=== PATIENT | male | born 1945 | race Caucasian/White ===

== ENCOUNTER 2018-11-15 19:54 | Observation (INO) | payer OTHER, BC, MEDICAID ==
[2018-11-15] MEDS ORDERED: NS 500 ML IV ONE (20:04)
[2018-11-15 20:26] LABS: PLATELET COUNT 256 10^3/uL (150-400)
[2018-11-15 20:46] LABS: INR 1.24 (0.83-1.16); PROTIME(PATIENT) 15.1 SEC (12.0-15.0)
[2018-11-15] MEDS ORDERED: NS 1,000 ML IV ONE (21:01)
--- NOTE | 2018-11-15 21:26 | EDPHY ---
H & P Time Seen by Provider: 11/15/18 20:04 HPI/ROS: HPI Lightheaded. Almost passed out. 73-year-old male, history of atrial fibrillation, presents to the emergency department with his . The patient reports that he was [place] the [employer] [place] all day today. He reports that several times during his adding he experienced episodes of lightheadedness and almost fainted. He states that he felt his heart beating rapidly as well. He denies any chest pain. No shortness of breath. He has a history of atrial fibrillation with an ablation performed in July. He reports he has been in sinus rhythm since that time. He is currently on Xarelto. He also has a history of a pacemaker which was placed secondary to bradycardia associated with his atrial fibrillation. ROS: Constitutional: No fever, no chills. As above. Eyes: No discharge. No changes in vision. ENT: No sore throat. No nasal congestion or rhinorrhea. Respiratory: No cough. No shortness of breath. Cardiac: No chest pain, as above. Gastrointestinal: No abdominal pain, no vomiting, no diarrhea. Genitourinary: No hematuria. No dysuria or increased frequency with urination. Musculoskeletal: No back pain. No neck pain. No myalgias or arthralgias. Skin: No rashes. Neurological: No headache. No focal weakness or altered sensation. Past medical history: Atrial fibrillation, type 2 diabetes, hypertension. He is currently on enalapril. Social history: Nonsmoker. He is here with his . Denies alcohol. Physical Exam: General Appearance: Alert, no distress. This patient is responding to questions appropriately and in full sentences. This patient appears well- hydrated and well-nourished. Eyes: Pupils equal and round no pallor or injection. No lid edema, erythema or injection. Respiratory: There are no retractions, lungs are clear to auscultation with good air movement bilaterally. Cardiovascular: Regular rate and rhythm. No murmur. Gastrointestinal: Abdomen is soft and nontender, no masses, bowel sounds normal. No focal tenderness at McBurney's point. No Navarro sign. Neurological: Motor sensory function is grossly intact. Cranial nerves are normal. Gait is normal. Skin: Warm and dry, no rashes. Musculoskeletal: Neck is supple and nontender. Extremities are symmetrical. All joints range without pain or impingement. Psychiatric: No agitation. No depression. Database: EKG: EKG time is 8:09 p.m.; EKG shows a narrow complex atrial flutter with a 4-1 av block and a ventricular rate of 64. The IL, QRS, QT intervals are within normal limits. There are no ST-T wave changes indicative of ischemic or injury pattern. No evidence of right heart strain. Interpreted by me. Imaging: Chest x-ray AP portable: Cardiac mediastinal silhouette is unremarkable. No evidence of pneumothorax or infiltrate. Pacemaker left upper chest wall. Leads appear to be intact. No acute cardiopulmonary disease process noted. Interpreted by me. Procedures: Emergency department course: Triage vital signs reviewed. The patient is hypotensive with a blood pressure of 88/57. Otherwise vital signs are normal. Patient is afebrile. IV was placed. He was started on IV normal saline with 500 cc to be given initially as a bolus. EKG obtained and reviewed by myself. He states that he is feeling better now. 9:00 p.m., patient re-evaluated, resting comfortably at this time. Results of some diagnostic studies discussed with him. Blood pressure currently 96/62. The patient's blood work indicates renal insufficiency likely secondary to dehydration. He will be given an additional L of IV normal saline. 9:30 p.m., patient's blood pressure is now 113/65. vehicle monitor technician shows what appears to be a flutter with 4-1 block ventricular rate of 60. Pulse oximetry on room air 97%. Spoke with the on-call hospitalist. Case discussed in detail with him. Patient accepted for admission to the hospitalist service PCU observation. Patient's remaining emergency department course under my care has been uneventful. He was admitted in stable condition. Differential Diagnosis: The differential diagnosis on this patient includes but is not limited to atrial flutter. This represents a partial list of diagnoses considered. These considerations are based on history, physical exam, past history, reassessment and diagnostic testing. Smoking Status: Unknown if ever smoked Constitutional: Initial Vital Signs Temperature (C) 36.7 C 11/15/18 19:56 Heart Rate 80 11/15/18 19:56 Respiratory Rate 16 11/15/18 19:56 Blood Pressure 88/57 L 11/15/18 19:56 O2 Sat (%) 95 11/15/18 19:56 O2 Delivery Mode Room Air Allergies/Adverse Reactions: NSAIDS (Non-Steroidal Anti-Inflamma Allergy (Verified 11/15/18 20:00) Oaedbkr-Ibv-Vdo Reductase Inhibitor Allergy (Verified 11/15/18 20:00) Home Medications: Medication Instructions Recorded Lisinopril 11/15/18 Metformin HCl 11/15/18 Xarelto 11/15/18 Medical Decision Making - Data Points Laboratory Results: Laboratory Results 11/15/18 20:12 11/15/18 20:12 11/15/18 11/15/18 11/15/18 20:15 20:12 20:12 WBC RBC Hgb Hct MCV MCH MCHC RDW Plt Count MPV Neut % (Auto) Lymph % (Auto) Hall % (Auto) Eos % (Auto) Baso % (Auto) Nucleat RBC Rel Count Absolute Neuts (auto) Absolute Lymphs (auto) Absolute Monos (auto) Absolute Eos (auto) Absolute Basos (auto) Absolute Nucleated RBC Immature Gran % Immature Gran # PT 15.1 SEC H SEC (12.0-15.0) INR 1.24 H (0.83-1.16) APTT 31.4 SEC SEC (23.0-38.0) Sodium 138 mEq/L mEq/L (135-145) Potassium 4.5 mEq/L mEq/L (3.5-5.2) Chloride 105 mEq/L mEq/L (97-110) Carbon Dioxide 21 mEq/l L mEq/l (22-31) Anion Gap 12 mEq/L mEq/L (6-14) BUN 31 mg/dL H mg/dL (7-23) Creatinine 2.4 mg/dL H mg/dL (0.7-1.3) Estimated GFR 27 Glucose 123 mg/dL H mg/dL (70-100) Calcium 9.2 mg/dL mg/dL (8.5-10.4) POC Troponin I 0.01 ng/mL ng/mL (0.00-0.08) 11/15/18 20:12 WBC 6.29 10^3/uL 10^3/uL (3.80-9.50) RBC 4.30 10^6/uL L 10^6/uL (4.40-6.38) Hgb 13.4 g/dL L g/dL (13.7-17.5) Hct 39.8 % L % (40.0-51.0) MCV 92.6 fL fL (81.5-99.8) MCH 31.2 pg pg (27.9-34.1) MCHC 33.7 g/dL g/dL (32.4-36.7) RDW 13.9 % % (11.5-15.2) Plt Count 256 10^3/uL 10^3/uL (150-400) MPV 10.0 fL fL (8.7-11.7) Neut % (Auto) 60.7 % % (39.3-74.2) Lymph % (Auto) 28.0 % % (15.0-45.0) Hall % (Auto) 9.5 % % (4.5-13.0) Eos % (Auto) 1.0 % % (0.6-7.6) Baso % (Auto) 0.5 % % (0.3-1.7) Nucleat RBC Rel Count 0.0 % % (0.0-0.2) Absolute Neuts (auto) 3.82 10^3/uL 10^3/uL (1.70-6.50) Absolute Lymphs (auto) 1.76 10^3/uL 10^3/uL (1.00-3.00) Absolute Monos (auto) 0.60 10^3/uL 10^3/uL (0.30-0.80) Absolute Eos (auto) 0.06 10^3/uL 10^3/uL (0.03-0.40) Absolute Basos (auto) 0.03 10^3/uL 10^3/uL (0.02-0.10) Absolute Nucleated RBC 0.00 10^3/uL 10^3/uL (0-0.01) Immature Gran % 0.3 % % (0.0-1.1) Immature Gran # 0.02 10^3/uL 10^3/uL (0.00-0.10) PT INR APTT Sodium Potassium Chloride Carbon Dioxide Anion Gap BUN Creatinine Estimated GFR Glucose Calcium POC Troponin I Medications Given: Discontinued Medications Sodium Chloride (Ns) 500 mls @ 1,000 mls/hr IV EDNOW ONE PRN Reason: Protocol Stop: 11/15/18 20:33 Last Admin: 11/15/18 20:38 Dose: 500 mls Sodium Chloride (Ns) 1,000 mls @ 0 mls/hr IV EDNOW ONE; Wide Open PRN Reason: Protocol Stop: 11/15/18 21:02 Last Admin: 11/15/18 21:06 Dose: 1,000 mls Point of Care Test Results: Chemistry 11/15/18 20:15 POC Troponin I 0.01 ng/mL ng/mL (0.00-0.08) Departure - Departure Disposition: [facility] Inpatient Acute Clinical Impression: Atrial flutter, Near syncope, Dehydration, Kidney injury Referrals: PAMELA OROZCO [Primary Care Provider] - As per Instructions
[2018-11-15] MEDS ORDERED: ONDANSETRON 4 MG/2 ML VIAL IVP PRN (22:33)
[2018-11-15] MEDS ORDERED: ONDANSETRON DISINTEGRATING 4 MG TAB PO PRN (22:33)
[2018-11-15] MEDS ORDERED: ACETAMINOPHEN 325 MG TAB PO PRN (22:33)
[2018-11-15] MEDS ORDERED: NS 1,000 ML IV SCH (22:45)
--- NOTE | 2018-11-15 23:41 | CPEKG ---
Test Reason : OPEN Blood Pressure : / mmHG Vent. Rate : 064 BPM Atrial Rate : 254 BPM P-R Int : 124 ms QRS Dur : 085 ms QT Int : 397 ms P-R-T Axes : -85 -33 004 degrees QTc Int : 410 ms Atrial flutter with predominant 4:1 AV block Left axis deviation Confirmed by Mike Stevenson ([id number]) on 11/15/2018 11:41:06 PM Referred By: Mike Stevenson Confirmed By:Mike Stevenson
--- NOTE | 2018-11-16 02:58 | PDGENHP ---
History and Physical - Chief Complaint lightheadedness, palpitations - History of Present Illness Source - Patient provides history and appears reliable. at bedside and supplements details. EMR reviewed and case discussed with accepting hospitalist HPI - This is a pleasant 73M with pmhx significant for HTN, DMII chronic atrial fib s/p ablation and pacer who presents to the ED with c/o several episodes of lightheadedness/near syncope and palpitations. Patient reports he was feeling well until this afternoon. He and his were attending the [employer] festival. Patient denies any chest pain, SOB, fevers/chills. He notes he is currently taking lisinopril and HCTZ for BP control. he was recently taken off amlodipine for low BPs. He notes increased activity over the weekend without significant increase in oral hydration and continued intake of antihypertensives. He had normal urine color/output in the AM but nothing since that time. he denies any flank pain or dysuria. He does not progressive decrease in emptying his bladder and decreased stream 2/2 BPH. Patient seen in the ED after 10pm and still had not voided. In the ED, patient was noted to be hypotensive without tachycardia. BPs and symptoms improved following IVF bolus. Patient was noted to have acute renal insufficiency. Patient report he had labs drawn 5 days ago within the [facility] system but unsure if result WNL. History Information - Allergies/Home Medication List Allergies/Adverse Reactions: naproxen [From Aleve] Allergy (Severe, Verified 11/15/18 22:16) Anaphylaxis Lqgcyxe-Ois-Gyd Reductase Inhibitor Allergy (Mild, Verified 11/15/18 22:16) Other-Enter Comments Home Medications: Armodafinil 150 mg PO MOTUWETHFR 11/15/18 [Last Taken 11/12/18] Escitalopram Oxalate [Lexapro] 10 mg PO HS 11/15/18 [Last Taken 11/15/18] Herbals/Supplements -Info Only 1 ea PO DAILY 11/15/18 [Last Taken 11/15/18] Hydrochlorothiazide [HCTZ (*)] 12.5 mg PO DAILY 11/15/18 [Last Taken 11/15/18] Metoprolol Tartrate [Lopressor 25 mg (*)] 25 mg PO BID 11/15/18 [Last Taken ] Pantoprazole Sodium [Protonix 40mg (*)] 40 mg PO DAILY 11/15/18 [Last Taken ] Rivaroxaban [Xarelto] 20 mg PO DAILY 11/15/18 [Last Taken 11/15/18] metFORMIN HCL [Metformin HCl] 500 mg PO BID 11/15/18 [Last Taken 11/15/18] I have personally reviewed and updated: family history, medical history, social history, surgical history - Past Medical History atrial fibrillation (hx of ablation 07/2018, pacer), diabetes type 2, hypertension - Surgical History Additional surgical history: cataract extraction with lens placement. PPM for bradycardia/afib. umbilical hernia repair. - Family History Additional family history: father - CVA, HTN - Social History Smoking Status: Unknown if ever smoked Alcohol Use: Occasionally (1 glass wine monthly) Drug Use: None Additional social history: . COR - FULL. Review of Systems Review of Systems: ROS: 10pt was reviewed & negative except for what was stated in HPI & below Cardiac: Reports: edema (improved with HCTZ), lightheadedness, palpitations, syncope (near syncope). Denies: chest pain Respiratory: Reports: no symptoms Gastrointestinal: Reports: no symptoms Genitourinary: Reports: no symptoms Muscolosketal: Reports: no symptoms Skin: Reports: no symptoms Neurological: Reports: no symptoms Physical Exam Physical Exam: Selected Entries 11/15/18 19:56 Blood Pressure Automatic Method Heart Rate 80 Respiratory 16 Rate O2 Sat (%) 95 Temperature (C) 36.7 C Blood Pressure 88/57 L Mean Arterial 67 Pressure (MAP) O2 Delivery Room Air Mode Temperature Oral Source Temp Pulse Resp BP Pulse Ox 36.6 C 60 16 110/66 97 11/16/18 00:15 11/16/18 00:57 11/16/18 00:15 11/16/18 00:57 11/16/18 00:15 Constitutional: no apparent distress, appears nourished, obese, other (NAD. pleasant adult male lays quietly on gurney. at bedside. ) Eyes: PERRL (lens reflex appreciated bilaterally. ), anicteric sclera, EOMI, No scleral injection Ears, Nose, Mouth, Throat: dry mucous membranes, No poor dentition (dental hardware/partial) Cardiovascular: regular rate and rhythym, no murmur, rub, or gallop, pulses symmetric bilaterally, edema (2+ nonpitting bilateral LE.), other (slightly distant heart sounds. ) Peripheral Pulses: 1+: dorsalis-pedis (R), dorsalis-pedis (L) Respiratory: no respiratory distress, no rales or rhonchi, clear to auscultation , No inspiratory crackles Gastrointestinal: normoactive bowel sounds, soft, non-tender abdomen, no palpable masses, other (obese abdomen) Genitourinary: no bladder tenderness, other (no CVA tenderness), No dennis in urethra Skin: warm, normal color, no rashes or abrasions Musculoskeletal: full muscle strength, other (patient able to sit up independently with side rail. moves all extremities. ) Neurologic: AAOx3, sensation intact bilaterally, other (grossly nonfocal. ), No facial droop Lab Data & Imaging Review 11/15/18 20:12 11/15/18 20:12 WBC 6.29 10^3/uL (3.80-9.50) 11/15/18 20:12 RBC 4.30 10^6/uL (4.40-6.38) L 11/15/18 20:12 Hgb 13.4 g/dL (13.7-17.5) L 11/15/18 20:12 Hct 39.8 % (40.0-51.0) L 11/15/18 20:12 MCV 92.6 fL (81.5-99.8) 11/15/18 20:12 MCH 31.2 pg (27.9-34.1) 11/15/18 20:12 MCHC 33.7 g/dL (32.4-36.7) 11/15/18 20:12 RDW 13.9 % (11.5-15.2) 11/15/18 20:12 Plt Count 256 10^3/uL (150-400) 11/15/18 20:12 MPV 10.0 fL (8.7-11.7) 11/15/18 20:12 Neut % (Auto) 60.7 % (39.3-74.2) 11/15/18 20:12 Lymph % (Auto) 28.0 % (15.0-45.0) 11/15/18 20:12 [place] % (Auto) 9.5 % (4.5-13.0) 11/15/18 20:12 Eos % (Auto) 1.0 % (0.6-7.6) 11/15/18 20:12 Baso % (Auto) 0.5 % (0.3-1.7) 11/15/18 20:12 Nucleat RBC Rel Count 0.0 % (0.0-0.2) 11/15/18 20:12 Absolute Neuts (auto) 3.82 10^3/uL (1.70-6.50) 11/15/18 20:12 Absolute Lymphs (auto) 1.76 10^3/uL (1.00-3.00) 11/15/18 20:12 Absolute Monos (auto) 0.60 10^3/uL (0.30-0.80) 11/15/18 20:12 Absolute Eos (auto) 0.06 10^3/uL (0.03-0.40) 11/15/18 20:12 Absolute Basos (auto) 0.03 10^3/uL (0.02-0.10) 11/15/18 20:12 Absolute Nucleated RBC 0.00 10^3/uL (0-0.01) 11/15/18 20:12 Immature Gran % 0.3 % (0.0-1.1) 11/15/18 20:12 Immature Gran # 0.02 10^3/uL (0.00-0.10) 11/15/18 20:12 PT 15.1 SEC (12.0-15.0) H 11/15/18 20:12 INR 1.24 (0.83-1.16) H 11/15/18 20:12 APTT 31.4 SEC (23.0-38.0) 11/15/18 20:12 Sodium 138 mEq/L (135-145) 11/15/18 20:12 Potassium 4.5 mEq/L (3.5-5.2) 11/15/18 20:12 Chloride 105 mEq/L (97-110) 11/15/18 20:12 Carbon Dioxide 21 mEq/l (22-31) L 11/15/18 20:12 Anion Gap 12 mEq/L (6-14) 11/15/18 20:12 BUN 31 mg/dL (7-23) H 11/15/18 20:12 Creatinine 2.4 mg/dL (0.7-1.3) H 11/15/18 20:12 Estimated GFR 27 11/15/18 20:12 Glucose 123 mg/dL (70-100) H 11/15/18 20:12 Calcium 9.2 mg/dL (8.5-10.4) 11/15/18 20:12 POC Troponin I 0.01 ng/mL (0.00-0.08) 11/15/18 20:15 Imaging Review: AP upright portable chest x-ray 2040 hours History: Chest Pain Findings: Comparison to 09/10/2007. Pacemaker unit and leads are now noted. Heart size is upper limits of normal. Pulmonary vasculature is not engorged. There is no consolidation, effusion, or pneumothorax. Osseous structures are unchanged. Impression: 1. No active cardiopulmonary disease seen. 2. Pacemaker unit and leads in good position. Dictated By: Jessee Guan MD Visualized and Interpreted Chest x-ray results: Yes EKG additional interpertation: aflutter with 4:1 AV block. LAD. QTc 410. no acute ST changes. Assessment & Plan Assessment: This is a pleasant 73M with pmhx significant for HTN, DMII chronic atrial fib s/ p ablation and pacer who presents to the ED with c/o several episodes of lightheadedness/near syncope and palpitations. #Atrial flutter (Acute) - currently rate controlled. monitor on tele overnight. suspect presyncope related to dehydration/orthostasis but consider interrogating pacer in AM. continue xarelto #Dehydration (Acute) - patient still appears dehydrated. BPs improved following bolus. orthostatic bps. suspect dehydration in setting of decreased po hydration and continued use of HCTZ. #ARF - creatinine 2.4. no recent renal panel avail for review at this time. will try to obtain tomorrow. pt reports recent o/p lab draws in AM. suspect pre- renal in setting of hypotension/dehydration. possible component of ATN. IVF hydration overnight. also will check post-void residual as patient noting increased BPH sx. #Near syncope (Acute) - 2/2 hypotension. patient currently asymptomatic. chronic medical issues #benign essential HTN - holding HCTZ/lisinopril at this time with hypotension and ARF. consider prn hydralazine if needed. pt s/p pacer for bradycardia. metoprolol. #DM II - hold metformin in setting of ARF. monitor BS. low dose ISS if needed. #GERD - continue PPI. FEN - IVF overnight. encourage PO hydration as well. electrolyte monitoring and replacement prn. ADA diet. PPX - SCDs. continue xarelto when med rec avail. COR - FULL. Dispo - Patient admitted to observation status pending re-evaluation of renal function and overnight tele in AM.
[2018-11-16 04:37] LABS: PLATELET COUNT 201 10^3/uL (150-400)
[2018-11-16 07:26] VITALS: BP 113/76
--- NOTE | 2018-11-16 09:01 | ASMTCMCOM ---
CM Note CM Note Notes: Chart reviewed for discharge planning purposes. Patient is a 73 year old male who normally resides independent with his in [place]. They were at the [employer] festival yesterday where he became lightheaded and dizzy and came to the ER. Medical history significant for DM, Afib s/p ablation, PPM and HTN. Cardiology consulted. No anticipated needs. CM to follow. Plan: Likely home with family support when medically cleared for follow up. Date Signed: 11/16/2018 09:00 AM Electronically Signed By:Idalia Castro RN
--- NOTE | 2018-11-16 11:14 | ASMTLACE ---
LACE Length of stay for Answers: Less than 1 day current admission Acuity / Level of Answers: No Care: Did the patient have an inpatient admission? Comorbidities - select Answers: Diabetes (uncontrolled or all that apply controlled) Mild liver or renal disease Other Notes: Aflutter # of Emergency department Answers: 1-2 visits in the last 6 months Score: 5 Date Signed: 11/16/2018 11:13 AM Electronically Signed By:Idalia Castro RN
--- NOTE | 2018-11-16 11:18 | ASMTDCNOTE ---
Case Management Discharge Discharge Order Complete? Answers: Yes Patient to Obtain Answers: via Family Medications Transportation Arranged Answers: Family/Friends Family Notified Answers: Yes Discharge Comments Notes: Medically cleared for independent discharge to home no needs. CM available should needs arise. Date Signed: 11/16/2018 11:17 AM Electronically Signed By:Idalia Castro RN
--- NOTE | 2018-11-16 14:40 | PDDCSUM ---
Discharge Summary Discharge Summary: Date of Admission: 11/15/2018 Date of Discharge: 11/16/2018 Procedures: CXR/EKG Followup: PCP, Cardiology This is a pleasant 73M with pmhx significant for HTN, DMII chronic atrial fib s/ p ablation and pacer who presents to the ED with c/o several episodes of lightheadedness/near syncope. #Atrial flutter (Acute) - currently rate controlled. - Monitored on tele overnight with no acute events - Suspect presyncope related to dehydration/orthostasis as below - Continue xarelto #Dehydration (Acute) - - Patient appearing dehydrated. - BPs improved following bolus. - Orthostatic bps positive during admission - Will discharge with patient continuing to hold HCTZ and Lisinopril until f/u with primary assembler lay ups #ARF - creatinine 2.4 on admission. - no recent renal panel avail for review at this time. - Suspect pre-renal in setting of hypotension/dehydration. - S/p IVF hydration with improvement in Cr to 2.0 - Instructed patient to f/u with PCP in next few days after discharge to ensure continued improvement, encouraged PO intake #Near syncope (Acute) - 2/2 hypotension. patient currently asymptomatic. chronic medical issues #benign essential HTN - holding HCTZ/lisinopril at this time with hypotension and ARF. pt s/p pacer for bradycardia. Continue home metoprolol. #DM II - held metformin in setting of ARF #GERD - continue PPI.
== END 2018-11-16 12:26 | disposition home or self-care (01) ==
LOC: INTOOBSV 21:37 → F2W 23:48
PROVIDERS: ADMIT Family Medicine; ATTEND Internal Medicine
DX: I48.92 Unspecified atrial flutter (principal); E86.0 Dehydration; N17.9 Acute kidney failure, unspecified; R55 Syncope and collapse; I95.9 Hypotension, unspecified; I10 Essential (primary) hypertension; E11.9 Type 2 diabetes mellitus without complications; K21.9 Gastro-esophageal reflux disease without esophagitis; Z95.0 Presence of cardiac pacemaker
CPT/HCPCS: 71045; 93005; 96360; 99285; G0378; 84484-ER